=== PATIENT | female | born 1985 | race Caucasian/White ===

== ENCOUNTER 2020-09-16 15:46 | Emergency (ER) | payer SELFPAY ==
[~2020-09-16] VITALS: Ht 160 cm; Wt 86.2 kg
[2020-09-16 15:49] VITALS: BP 100/61
[2020-09-16 16:15] VITALS: BP 100/61
== END 2020-09-16 16:15 ==
LOC: MED 15:46
DX: R41.0 Disorientation, unspecified (principal); Z02.89 Encounter for other administrative examinations
CPT/HCPCS: 99283